=== PATIENT | male | born 1945 | race Caucasian/White ===

== ENCOUNTER 2018-09-08 12:19 | Emergency (ER) | payer OTHER ==
[~2018-09-08] VITALS: Ht 180.3 cm; Wt 131.5 kg
[2018-09-08 13:31] LABS: HEMATOCRIT 37.6 % (42.0-52.0); HEMOGLOBIN 12.8 gm/dL (14.0-18.0); MCH 33.4 pg (26.0-34.0); MCHC 33.9 g/dL (28.0-37.0); MCV 98.4 fL (80.0-100.0); PLATELET COUNT 159 thou/uL (150-400); RBC 3.82 mil/uL (4.50-6.00); RDW 14.8 % (10.5-14.5); WBC 7.4 thou/uL (4.0-11.0)
[2018-09-08 13:48] LABS: CALCIUM 9.7 mg/dL (8.5-10.1); CREATININE 1.1 mg/dL (0.7-1.3); POTASSIUM 4.5 mmol/L (3.5-5.1)
[2018-09-08 14:10] LABS: ABSOLUTE NEUTROPHILS 5.3 thou/uL (1.4-8.2); ATYPICAL LYMPHS 5 %
[2018-09-08] MEDS ORDERED: CLEOCIN HCL300 MG PO (15:14)
[2018-09-08] MEDS ORDERED: AUGMENTIN 875-1 EACH PO (15:14)
[2018-09-08 15:25] VITALS: BP 125/63
== END 2018-09-08 15:26 | disposition home or self-care (01) ==
LOC: ER 12:19
PROVIDERS: Physician Assistant
DX: L03.213 Periorbital cellulitis (principal); H04.301 Unspecified dacryocystitis of right lacrimal passage; E11.9 Type 2 diabetes mellitus without complications; F17.210 Nicotine dependence, cigarettes, uncomplicated